=== PATIENT | female | born 1945 | race Caucasian/White ===

== ENCOUNTER 2019-02-11 04:47 | Inpatient (IN) ==
--- NOTE | 2019-01-16 16:31 | PAT Medication Instructions ---
Medication Instructions Date of Service January 16, 2019 Home Medications acetaminophen [Tylenol Arthritis] 1,300 mg PO Q12H PRN aspirin [Aspirin Low Dose] 81 mg PO QPM atenolol 25 mg PO QPM cholecalciferol (vitamin D3) 2,000 unit PO QPM citalopram [Celexa] 10 mg PO QDD diltiazem HCl 240 mg PO QAM ferrous sulfate 325 mg PO QAM metformin 1,000 mg PO BID multivitamin 1 tab PO QPM DO NOT take the morning of surgery ferrous sulfate 325 mg PO QAM metformin 1,000 mg PO BID Take morning of surgery With a small sip of water, OTHERWISE NOTHING TO EAT OR DRINK AFTER MIDNIGHT: acetaminophen [Tylenol Arthritis] 1,300 mg PO Q12H PRN (if needed, may be taken up to four hours before surgery) diltiazem HCl 240 mg PO QAM Take evening before surgery acetaminophen [Tylenol Arthritis] 1,300 mg PO Q12H PRN (if needed) aspirin [Aspirin Low Dose] 81 mg PO QPM atenolol 25 mg PO QPM cholecalciferol (vitamin D3) 2,000 unit PO QPM citalopram [Celexa] 10 mg PO QDD multivitamin 1 tab PO QPM metformin 1,000 mg PO BID Other Notes If you have any questions please call us at [phone] or [phone] or [phone] or [phone]
--- NOTE | 2019-01-17 08:51 | Anesthesiology Consultation ---
Date of Service January 17, 2019 Assessment & Plan (1) Encounter for pre-operative examination: Plan: PCP clearance 02/03/2019: "Labs okay. EKG shows ectopic atrial rhythm which was not present on April 15, 2008 EKG. I would like her to be seen by cardio prior to surgery. We will see how soon we can get her in." Addendum 02/10/19: "Seen by cardio last weekcleared. I believe patient to be an acceptable risk for surgery." Cardiac clearance 02/07/2019: "She has no cardiac symptoms and has reasonable functional status despite her arthritic right knee; she tells me that she goes up and down the 12 steps in her basement several times a day and remains asymptomatic from a cardiac standpoint. We should proceed with her right knee replacement, except in the cardia vascular risk involved and under perioperative beta blockade. An ischemic evaluation is not merited. An EKG from 01/17/2019 reveals an ectopic atrial rhythm; this is not a contraindication to surgery. She will obtain an echocardiogram to rule out significant structural heart disease, which is however unlikely. Her surgery should not be postponed on account of this." Chart Review Chart Review: Acceptable Risk for Surgery and Patient seen in Pre Admission Testing Teaching & Discussion Instructed NPO after midnight before surgery, except medications with 15 cc of water. Medication instructions provided according to the PAT guidelines. History Surgery Operation Date: 02/11/19 07:15 Proposed Procedures p Right Total Knee Arthroplasty - Tanner Burns DO Height/Weight Height: 5 ft 2 in Weight: 53.4 kg Allergies Allergy/AdvReac Type Severity Reaction Status Date / Time niacin Allergy Rash Verified 02/11/19 05:52 lisinopril AdvReac Mild Cough Verified 02/11/19 05:52 morphine AdvReac Unknown N&V Verified 02/11/19 05:52 Medications Home Medications Medication Instructions Recorded Confirmed Last Taken acetaminophen [Tylenol Arthritis 1,300 mg PO Q12H PRN 01/09/19 02/11/19 02/10/19 21:45 Pain] aspirin [Aspirin Low Dose] 81 mg PO QPM 01/09/19 02/11/19 02/08/19 18:00 atenolol 25 mg PO QPM 01/09/19 02/11/19 02/10/19 18:30 cholecalciferol (vitamin D3) 2,000 unit PO QPM 01/09/19 02/11/19 02/10/19 18:30 [Vitamin D3] citalopram [Celexa] 10 mg PO QDD 01/09/19 02/11/19 02/10/19 18:30 diltiazem HCl 240 mg PO QAM 01/09/19 02/11/19 02/11/19 02:30 ferrous sulfate 325 mg PO QAM 01/09/19 02/11/19 02/10/19 10:00 metformin 1,000 mg PO BID 01/09/19 02/11/19 02/10/19 18:00 multivitamin 1 tab PO QPM 01/09/19 02/11/19 02/10/19 18:30 Active Medications Generic Name Dose Route Start Last Admin Trade Name Freq PRN Reason Stop Dose Admin Acetaminophen 1,000 mg 02/11/19 06:00 02/11/19 06:01 Tylenol PO 02/11/19 18:00 1,000 mg PREOP JENNIFER Administration Celecoxib 200 mg 02/11/19 06:00 02/11/19 05:57 Celebrex PO 02/11/19 18:00 200 mg PREOP JENNIFER Administration Dexamethasone 8 mg 02/11/19 06:00 02/11/19 05:58 Decadron PO 02/11/19 18:00 8 mg PREOP JENNIFER Administration Famotidine 20 mg 02/11/19 06:00 02/11/19 06:01 Pepcid PO 02/11/19 18:00 20 mg PREOP JENNIFER Administration Gabapentin 300 mg 02/11/19 06:00 02/11/19 06:00 Neurontin PO 02/11/19 18:00 300 mg PREOP JENNIFER Administration Lactated Ringer's 1,000 mls @ 15 mls/hr 02/11/19 06:00 02/11/19 05:35 Lr IV 02/11/19 18:00 999 mls/hr .Q24H JENNIFER Administration Past Medical History Medical History Anemia Anxiety Diabetes A1C 6.6% Hypertension Osteoarthritis Past Family History Family History Sister Family history of diabetes mellitus Past Surgical History Surgical History History of toe surgery History of total left knee replacement Hx of bilateral cataract extraction Hx of tonsillectomy Hx of total hysterectomy Hx of tubal ligation Past Anesthesia History No Hx of Anesthesia Complications and No Family Hx of Anesthesia Complications History of PONV Yes (related to morphine) Motion Sickness Screening History of Motion Sickness: No Social History Smoking Status: Never smoker Do You Dip or Chew Tobacco: No Hx Alcohol Use: No Hx Substance Use: No substance use type: does not use Exercise / Class Metabolic Activity II 4-5 Yardwork/Stairs/Walk up hill (no CP or SOB with stairs) Review of Systems Pt denies any recent chest pain, shortness of breath, palpitations, cough, fever. +common cold early november Physical Exam Vital Signs Last Vital Signs Temp 36.8 C 02/11/19 06:06 Pulse 56 L 02/11/19 06:06 Resp 20 02/11/19 06:06 BP 144/57 H 02/11/19 06:06 Pulse Ox 97 02/11/19 06:06 BP: 120/69 P: 61 SPO2: 97% RA T: 98.2 F R: 12 ENMT Mouth: + dental restorations (4 crowns on top front teeth); no chipped teeth and no loose teeth Thyromental Distance: > or= 3.5 Finger Breadths (3.5) Mallampati Class: II Neck normal visual inspection; neck extension not limited Respiratory normal respiratory effort Auscultation: lungs clear to auscultation bilaterally Cardiovascular Rate/Rhythm: regular rate and regular rhythm Heart Sounds: no murmur Vessels: no carotid bruit Testing Electrocardiogram Date: 01/17/19 Unusual P axis, possible ectopic atrial rhythm (64bpm). Chest X-Ray Date: 12/27/18 (Chest CT) No evidence of acute pulmonary embolus to the level of the proximal segmental branches of the pulmonary arteries. No suspicious appearing pulmonary nodules. Unremarkable aorta. *this CT was done as f/u for CXR that showed possible nodule. Laboratory Results Blood Type O Positive 01/17/19 09:03 Antibody Screen NEGATIVE 01/17/19 09:03 PT 10.3 Seconds (9.0-12.0) 01/17/19 09:03 INR 1.0 (0.9-1.1) 01/17/19 09:03 APTT 28.3 Seconds (21.0-31.0) 01/17/19 09:03 Urine Color Yellow 01/17/19 09:03 Urine Appearance Clear (Clear) 01/17/19 09:03 Urine pH 5.0 (4.5-7.5) 01/17/19 09:03 Ur Specific Hoffman 1.024 (1.000-1.030) 01/17/19 09:03 Urine Protein Negative (Negative) 01/17/19 09:03 Urine Glucose (UA) Negative (Negative) 01/17/19 09:03 Urine Ketones Negative (Negative) 01/17/19 09:03 Urine Nitrite Negative (Negative) 01/17/19 09:03 Ur Leukocyte Esterase Negative (Negative) 01/17/19 09:03 01/17/19 09:03 Urine Culture - Final Urine,Clean Catch Lactobacillus species 02/11/19 05:16 POC Glucose 109 H 12/25/18 WBC: 9.48 H/H: 13.2/42.1 PLATELETS: 386 SODIUM: 140 POTASSIUM: 3.7 CHLORIDE: 101 CO2: 30.9 BUN: 14.7 CREATININE: 0.61 GLUCOSE: 88 A1C 6.6%
[2019-01-17 09:51] LABS: Partial Thromboplastin Time 28.3 Seconds (21.0-31.0); Prothrombin Time 10.3 Seconds (9.0-12.0)
[2019-01-17 09:52] LABS: Appearance Urine Clear (Clear); Bilirubin Urine Negative (Negative); Blood Urine Negative (Negative); Color Urine Yellow; Glucose Urine UA Negative (Negative); Ketones Urine Negative (Negative); Leukocyte Esterase Urine Negative (Negative); Nitrite Urine Negative (Negative); Protein Urine Negative (Negative); Specific Gravity Urine 1.024 (1.000-1.030); Urobilinogen Urine Negative (Negative)
--- NOTE | 2019-01-17 10:09 | History & Physical Report ---
Date of Service January 17, 2019 Date of Surgery: 02-11-19 Assessment & Plan (1) Tricompartment osteoarthritis of right knee: Risks and benefits of procedure discussed in detail today, patient would like to proceed with a right total knee replacement @ [facility] as scheduled on 02-11-19. will obtain medical clearance prior to surgery as well as obtain PATs at [facility]. Will place on ASA 81mg po bid x 1 month post op, f/u 2 weeks post op for routine post-operative care and xray, sooner if having any problems. will make arrangements for HHPT at the time of discharge. History of Present Illness Chief Complaint: right knee pain Primary Care Provider: Venu Bear Ms Wolfe is a 73 year old female who is here for a follow up of right knee pain, is here today for right TKA for 02/11/[address] Burns at [facility]. She states that the symptoms have been chronic non-traumatic. she admits to pain, decreased range of motion and weakness. Currently the patient states that the symptoms are mild-moderate. The pain is described as aching. The symptoms occur intermittently. She rates her current pain as 3/10. worst pain is 7/10. The symptoms are aggravated by ascending stairs, daily activities, descending stairs, walking and first steps while awake. In addition to right knee pain the patient is also experiencing difficulty bending and pain after activity. Patient has a walker and cane at home. Patient had left TKA done by Dr. Burns 2007. Allergies Allergy/AdvReac Type Severity Reaction Status Date / Time niacin Allergy Rash Verified 01/09/19 10:41 lisinopril AdvReac Mild Cough Verified 01/09/19 10:41 morphine AdvReac Unknown N&V Verified 01/09/19 10:40 Home Medications Home Medications Medication Instructions Recorded Confirmed Type acetaminophen [Tylenol Arthritis 1,300 mg PO Q12H PRN 01/09/19 01/09/19 History Pain] aspirin [Aspirin Low Dose] 81 mg PO QPM 01/09/19 01/09/19 History atenolol 25 mg PO QPM 01/09/19 01/09/19 History cholecalciferol (vitamin D3) 2,000 unit PO QPM 01/09/19 01/09/19 History [Vitamin D3] citalopram [Celexa] 10 mg PO QDD 01/09/19 01/09/19 History diltiazem HCl 240 mg PO QAM 01/09/19 01/09/19 History ferrous sulfate 325 mg PO QAM 01/09/19 01/09/19 History metformin 1,000 mg PO BID 01/09/19 01/09/19 History multivitamin 1 tab PO QPM 01/09/19 01/09/19 History Past Med/Surg History Medical History Anemia Anxiety Diabetes Hypertension Osteoarthritis Surgical History History of toe surgery History of total left knee replacement Hx of bilateral cataract extraction Hx of tonsillectomy Hx of total hysterectomy Hx of tubal ligation Family History Sister Family history of diabetes mellitus Social History Current Living Situation: Spouse Other Information That Helps Us Care for You: No Feels Safe at Home: Yes Safety Concerns: Feels Safe At This Time Smoking Status: Never smoker Do You Dip or Chew Tobacco: No Hx Alcohol Use: No Hx Substance Use: No Beliefs That Will Affect Care: None Preferred Language: Japanese Communication Ability: Effective Review of Systems All systems reviewed & are unremarkable except as noted in HPI & below Constitutional: no fever, no chills and no sweats Respiratory: no cough and no dyspnea Cardiovascular: no chest pain, no dyspnea and no orthopnea Gastrointestinal: no nausea and no vomiting Integumentary: no rash and no lesions Physical Exam Vital Signs (Past 24 Hours): Ht: 5ft 2in Wt: 53.4kg BP: 116/76 Pulse: 62 Resp: 16 Constitutional: WD/WN, vitals as above no acute distress Respiratory: normal respiratory effort, lungs clear to auscultation no respiratory distress, no labored breathing and does not use accessory muscles Cardiovascular: RRR, no murmur, no edema Gastrointestinal (Abdomen): normal bowel sounds, soft, nontender, no hepatosplenomegaly Musculoskeletal: Right Knee Exam she ambulates with a limp and no assistance device, there is no erythema or warmth, no Atrophy or Ecchymosis, mild Effusion, Maximum tenderness Medial joint line, mild Crepitation with motion, Patella position Neutral, Markel's Negative, Rosalia's - lateral positive, Rosalia's - medial positive, Posterior drawer- Negative, Anterior drawer Negative, Valgus stress Negative, Varus stress Negative, no Extensor lag, Pain with Active range of motion, also passive painful ROM, Range of motion 0/3/120. No pain with active/passive ROM of ankle. Lower Extremity Strength normal. Lower Extremity Neuro-vascular is normal Results & Data Diagnostic Findings Right Knee X-ray from 01-06-19 showing tricompartmental DJD, showing joint space narrowing and osteophyte formation. no acute bony pathology, no loose bodies.
[2019-02-11] MEDS ORDERED: TRANEXAMIC ACID 1,000 MG **IV Pre-op IV SCH (06:00)
[2019-02-11] MEDS ORDERED: FAMOTIDINE 20 MG TAB PO SCH (06:00)
[2019-02-11] MEDS ORDERED: ROPIVACAINE 0.5% HCL/PF 150 MG, BUPIVACAINE 0.5% MPF 30 ML, EPINEPHrine 30MG/30ML (OR U... INFIL SCH (06:00)
[2019-02-11] MEDS ORDERED: CEFAZOLIN 1000MG 1,000 MG/7.5 ML SYR IV SCH (06:00)
[2019-02-11] MEDS ORDERED: GABAPENTIN 300 MG PO SCH (06:00)
[2019-02-11] MEDS ORDERED: ACETAMINOPHEN 500 MG TAB PO SCH (06:00)
[2019-02-11] MEDS ORDERED: CeleBREX 200 MG CAP PO SCH (06:00)
[2019-02-11] MEDS ORDERED: LR 500ML BOLUS, THEN 15ML/HR IV SCH (06:00)
[2019-02-11] MEDS ORDERED: dexAMETHasone 4 MG TAB PO SCH (06:00)
[2019-02-11] MEDS ORDERED: ROPIVACAINE 0.5% 5 MG/ML 30 ML VIAL ONE (06:29)
[2019-02-11] MEDS ORDERED: EPINEPHrine INJ 1 MG/ML AMP ONE (06:29)
[2019-02-11] MEDS ORDERED: BUPIVACAINE 0.5 % 5 MG/1 ML PF 10ML VIAL ONE (06:29)
[2019-02-11] MEDS ORDERED: TRANEXAMIC ACID 1,000 MG **IV Intra-op IV SCH (06:30)
[2019-02-11] MEDS ORDERED: PROPOFOL IV EMULSION 10 MG/ML 20 ML VIAL IV ONE (06:40)
[2019-02-11] MEDS ORDERED: MIDAZOLAM HCL 1 MG/ML 2ML VIAL ONE ×2 (06:41→07:49)
[2019-02-11] MEDS ORDERED: fentaNYL citrate 100 MCG/2 ML VIAL ONE (06:41)
[2019-02-11] MEDS ORDERED: ORTHO JOINT ANESTHETIC ONE (06:56)
[2019-02-11] MEDS ORDERED: BACITRACIN INJ 50,000 UNIT VIAL ONE (06:56)
[2019-02-11] MEDS ORDERED: POVIDONE-IODINE OP SOLN 30 ML BTL ONE (06:56)
--- NOTE | 2019-02-11 07:12 | History & Physical Bridge Note ---
Date of Service February 11, 2019 History & Physical Bridge Note I have examined the patient, reviewed the History & Physical and in the interval since the performance of the History & Physical I have noted the following changes of clinical significance: no changes noted
[2019-02-11] MEDS ORDERED: ATROPINE SULFATE 0.1 MG/ML 10ML SYR IV PRN (07:22)
[2019-02-11] MEDS ORDERED: fentaNYL citrate 100 MCG/2 ML VIAL IV PRN (07:22)
[2019-02-11] MEDS ORDERED: HYDROmorphone INJ 1 MG/ML SYRINGE IV PRN (07:22)
[2019-02-11] MEDS ORDERED: ePHEDrine sulfate 50 MG/ML AMP IV PRN (07:22)
[2019-02-11] MEDS ORDERED: ONDANSETRON INJ 2 MG/ML 2 ML VIAL IV PRN ×2 (07:22→09:14)
--- NOTE | 2019-02-11 08:18 | Operative Report ---
Post Operative Report Pre & Post Diagnosis Operation Date: 02/11/19 07:15 Pre-Op Diagnosis: right knee osteoarthritis Post-Op Diagnosis: right knee osteoarthritis Procedure Operation Date: 02/11/19 07:15 Actual Procedures p Right Total Knee Arthroplasty(Right) total knee arthroplasty utilizing journey 2 patient matched total knee arthroplasty size 3 femur 3 tibia 10 polyethylene 29 oval patella- Tanner Burns DO Surgeon Tanner Burns DO Time Stamp Assembler Blayne WHEATLEY Estimated Blood Loss 5 Findings Consistent with Post-Op Diagnosis Patient presents with severe end-stage tricompartmental degenerative joint disease varus alignment [id number] changes intraoperative subchondral cystic changes marginal osteophytes moderate to large effusion with eburnated bone on bone changes Specimens Bone and cartilage Drains Medium bore Hemovac Complications none Disposition Accompanied Patient To Recovery: No Disposition: Recovery Room Indications Patient presents for right total knee arthroplasty after failed attempts at conservative management and physical therapy anti-inflammatories relative rest activity modification corticosteroid injection Visco supplementation the above intraoperative findings were noted at the time of surgery. Description of Procedure After proper prepping and draping of the Right lower extremity anterior midline incision was made over the region of the extensor extensor mechanism after meticulous hemostasis was obtained and maintained in subcutaneous tissues a medial parapatellar incision was made The patella was subluxed lateralward the medial lateral gutter were cleaned from any hypertrophic synovitis and scar tissue of the distal femoral block was placed and the distal femoral osteotomy cut was made subsequently the chamfers anterior and posterior osteotomy cuts were made utilizing the 4-in-1 block the tibia was subsequently subluxed anteriorward medial and ateral meniscal remnants were excised in their entirety remnants of the anterior and posterior cruciate ligaments were excised in their entirety excellent exposure of the proximal tibia was obtained the tibial osteotomy guide was placed on the proximal tibial osteotomy cut was made once again the knee was irrigated with copious amounts of sterile saline solution the patella was subsequently everted lateralward thickened scar tissue around the patella was removed the patella was subsequently cut utilizing a freehand technique and was drilled prepared for final preparation and placement of patella socially flexion-extension gaps were checked and the equal and symmetric trials were placed to the appropriate femoral and tibial trials with poly-spacer being placed for equal flexion and extension gaps and full range of motion including extension to 0 and flexion to 140 the trial components after having been taken to recovery range of motion was subsequently removed meticulous hemostasis was obtained and maintained subsequently a knee block injection of joint cocktail including ropivacaine 0.5% 150 mg. Bupivacaine 0.5% epinephrine 1-200,030 mL's toradol 30 mg dexamethasone 4 mg ketamine 10 mg clonidine 100 micrograms normal saline solution 30 mg was infiltrated into the soft tissues of the posterior knee medial lateral gutters and periosteal synovium special attention was paid to protect neurovascular structures at all times subsequently trial components having been removed the knee was irrigated with sterile saline solution. debris was removed the proximal tibia was subsequently prepared and was made ready for the placement of the tibial component tibial component was also cemented and tamped into position the femoral component was subsequently placed and cemented in the position the patellar component was subsequently cemented in position because hemostasis once again obtained and maintained wound having been thoroughly irrigated with debridement and debridement lavage was performed as well as a medial parapatellar incision closed with #1 Vicryl in interrupted fashion subcutaneous was closed with #2 Vicryl skin was closed with skin clips. PA-C was necessary for prepping and drapping as well as wound closure of deep fascia Sub cutaneous tissue and skin and was necessary for the case. A sterile compressive dressing was placed patient was taken to recovery in stable condition of report dictated by Grant I attest to the content of the Intraoperative Record and any orders documented therein. Any exceptions are noted below. I attest to the content of the Intraoperative Record and any orders documented therein. Any exceptions are noted below.
[2019-02-11] MEDS ORDERED: NALOXONE HCL 0.4 MG/1 ML VIAL/CARP IV PRN (09:14)
[2019-02-11] MEDS ORDERED: HYDROmorphone INJ 0.5 MG/0.5 ML SYR IV PRN (09:14)
[2019-02-11] MEDS ORDERED: BISACODYL 10 MG SUPP PR PRN (09:14)
[2019-02-11] MEDS ORDERED: METOCLOPRAMIDE HCL INJ 5 MG/ML 2 ML VIAL IV PRN (09:14)
[2019-02-11] MEDS ORDERED: MAGNESIUM HYDROXIDE SUSP 30 ML UDC PO PRN (09:14)
[2019-02-11] MEDS ORDERED: ALUMINUM/MAGNESIUM SUSP 30 ML UDC PO PRN (09:14)
[2019-02-11] MEDS ORDERED: SODIUM CHLORIDE 0.9% 1000ML 1,000 ML IV SCH (09:14)
--- NOTE | 2019-02-11 09:32 | XRay Report ---
XR knee RT 2V routine CLINICAL HISTORY: Surgical Post Op postoperative COMPARISON: None. DISCUSSION: Anatomic alignment post total right knee arthroplasty. Good contact between prosthetic an d underlying bone. Surgical drains are in position. IMPRESSION: Anatomic alignment post total right knee arthroplasty. The above report was generated using voice recognition software. It may contain grammatical, syntax or spelling errors. Electronically signed by: Blayne Escamilla M.D. 02/11/2019 9:30 AM
--- NOTE | 2019-02-11 10:19 | Anesthesiology Progress Note ---
Date of Service February 11, 2019 Anesthesia Post Procedure Vital Signs Vital Signs: Temp Pulse Pulse Resp BP Pulse Ox 02/11/19 10:05 71 21 118/53 L 96 02/11/19 09:55 72 16 113/56 L 95 02/11/19 09:45 76 16 119/52 L 98 02/11/19 09:35 37.0 C 70 16 119/51 L 99 02/11/19 09:25 77 16 114/62 99 02/11/19 09:15 72 16 116/59 L 99 02/11/19 09:05 71 16 114/50 L 100 02/11/19 08:57 36.2 C L 77 16 120/46 L 100 02/11/19 06:06 36.8 C 56 L 20 144/57 H 97 Notes Mental Status: alert / awake / arousable and participated in evaluation Nausea / Vomiting: adequately controlled Pain: adequately controlled Airway Patency, RR, SpO2: stable & adequate BP & HR: stable & adequate Hydration State: stable & adequate Neuraxial Anesthesia: was administered and sensory block is resolving Anesthetic Complications: no major complications apparent and Pt Satisfied with anesthetic care
[2019-02-11] MEDS: DOCUSATE SODIUM 100 MG CAP PO SCH ×2 (11:17→21:28)
[2019-02-11] MEDS: MULTIVITAMIN TAB PO SCH (11:17)
[2019-02-11] MEDS ORDERED: DEXTROSE 50% 50 ML SYRINGE IV PRN (13:03)
[2019-02-11] MEDS ORDERED: GLUCOSE 40% GEL 15 GM TUBE PO PRN (13:03)
[2019-02-11] MEDS ORDERED: GLUCAGON FOR INJ 1 MG VIAL SQ PRN (13:03)
[2019-02-11] MEDS ORDERED: GLUCOSE 10 TABS/TUBE PO PRN (13:03)
[2019-02-11] MEDS ORDERED: CARBOHYDRATES FOR HYPOGLYCEMIA PO PRN (13:03)
[2019-02-11] MEDS ORDERED: PNEUMOCOCCAL POLYSACCHARIDES 25 MCG/0.5 ML VIAL/SYR IM ONE (13:45)
[2019-02-11] MEDS ORDERED: PNEUMOCOCCAL ADMINISTRATION CHARGE ONE (13:45)
[2019-02-11] MEDS: ACETAMINOPHEN 500 MG TAB PO SCH ×2 (14:07→21:37)
[2019-02-11] MEDS: ASPIRIN 81 MG ECTAB PO SCH ×2 (14:22→21:28)
--- NOTE | 2019-02-11 14:54 | Consultation ---
Date of Consultation February 11, 2019 Assessment & Plan (1) Tricompartment osteoarthritis of right knee: - S/P R TKA on 02/11 - DVT Prophylaxis - ASA 81 mg BID - Surgical management per primary team Present on Admission?: Yes (2) Ectopic atrial beats: - Found incidentally on pre-operative EKG - was recently established with cardiology and awaiting an echocardiogram as outpatient - no current intervention - Is currently on BB and CBB therapy which would control this - No CP or SOB or irregularity on assessment - can F/U with cardiology for further assessment and intervention Present on Admission?: Yes (3) Anemia: - No labs in system - will F/U with AM labs - Chronically on iron supplementation (4) Type 2 diabetes mellitus: - With good control - Hold Metformin and cover with SSI - did have pre-operative steroids which could affect some BSG readings Present on Admission?: Yes (5) Essential hypertension: - Diltiazem 240 mg AM and Atenolol 25 mg PM Present on Admission?: Yes (6) Anxiety: - Celexa 10 mg daily Present on Admission?: Yes Supervising Physician Co-Signing Physician Notes Pt seen and examined by me. Denies chest pain or SOB. States she has no pain in her R knee. Tolerating PO without issue. Agree with HPI/ROS as noted by PA See above for my exam in PE section Agree with plan as outlined above doing well post-op Monitor DM, HTN History of Present Illness Reason for Consultation: Post-Operative Management Attending Physician: Tanner Burns, DO History of Present Illness Ms. Wolfe is a 73 y/o female with PMHx of Chronic Anemia, T2DM, HTN, and Ectopic Atrial Beats who is S/P R TKA on 02/11. She is doing well post- operatively with no pain currently. She is tolerating a diet without difficulty. She reports seeing tray delivery aide prior to her surgical procedure. She is scheduled for an echocardiogram in the coming weeks give the ectopic atrial beats however no current intervention is necessary. She currently is on CBB and BB therapy which would control this. She denies other cardiac issues or H/O RI/CHF. No history of DVT/PE. Allergies Allergy/AdvReac Type Severity Reaction Status Date / Time niacin Allergy Rash Verified 02/11/19 05:52 lisinopril AdvReac Mild Cough Verified 02/11/19 05:52 morphine AdvReac Unknown N&V Verified 02/11/19 05:52 Home Medications Home Medications Medication Instructions Recorded Confirmed Type acetaminophen [Tylenol Arthritis 1,300 mg PO Q12H PRN 01/09/19 02/11/19 History Pain] aspirin [Aspirin Low Dose] 81 mg PO QPM 01/09/19 02/11/19 History atenolol 25 mg PO QPM 01/09/19 02/11/19 History cholecalciferol (vitamin D3) 2,000 unit PO QPM 01/09/19 02/11/19 History [Vitamin D3] citalopram [Celexa] 10 mg PO QDD 01/09/19 02/11/19 History diltiazem HCl 240 mg PO QAM 01/09/19 02/11/19 History ferrous sulfate 325 mg PO QAM 01/09/19 02/11/19 History metformin 1,000 mg PO BID 01/09/19 02/11/19 History multivitamin 1 tab PO QPM 01/09/19 02/11/19 History Patient History Medical History Anemia Anxiety Diabetes A1C 6.6% Hypertension Osteoarthritis Surgical History History of toe surgery History of total left knee replacement Hx of bilateral cataract extraction Hx of tonsillectomy Hx of total hysterectomy Hx of tubal ligation Family History Sister Family history of diabetes mellitus Other Breast cancer COPD (chronic obstructive pulmonary disease) Coronary heart disease Heart disease Hypertension Kidney disease Stroke Social History Preferred Language: Tristanian Communication Ability: Effective Beliefs That Will Affect Care: None Current Living Situation: Spouse Other Information That Helps Us Care for You: No Feels Safe at Home: Yes Safety Concerns: Feels Safe At This Time Smoking Status: Never smoker Hx Alcohol Use: No Hx Substance Use: No Review of Systems Constitutional: no fever, no chills, no fatigue and no anorexia Eyes: no worsening vision Ear, Nose, Mouth, Throat: no sore throat and no dysphagia Respiratory: no cough and no dyspnea Cardiovascular: no chest pain, no lightheadedness and no edema Gastrointestinal: no abdominal pain, no nausea, no vomiting, no constipation and no diarrhea/loose stools Genitourinary (Female): no dysuria Musculoskeletal: no joint pain Integumentary: no rash Neurologic: no tingling and no numbness Physical Exam Vital Signs (Past 24 Hours): Last Vital Signs Temp 36.6 C 02/11/19 11:37 Pulse 102 H 02/11/19 13:44 Resp 18 02/11/19 13:44 BP 135/67 02/11/19 13:44 Pulse Ox 97 02/11/19 13:44 Physical Exam: Exam as done by Cassandra Parikh DO: Constitutional: WD/WN, vitals as above Eyes: + anicteric sclerae ENMT: Ears: no hearing impairment Neck: trachea midline Respiratory: normal respiratory effort, lungs clear to auscultation Cardiovascular: RRR, no murmur, no edema Rate/Rhythm: regular rate and regular rhythm Gastrointestinal (Abdomen): Inspection/Auscultation: normal bowel sounds Percussion/Palpation: abdomen soft; abdomen nontender Musculoskeletal: Head/Neck/Chest: normocephalic and head atraumatic Neg for peripheral LE edema, + pedal pulses Skin: no rashes, warm and dry Neurologic: moves all extremities Speech / Cognition: normal speech Psychiatric: A+Ox3, euthymic affect Lymphatic: Exam as done by Cassandra Parikh DO
[2019-02-11] MEDS: CEFAZOLIN 1000MG 1,000 MG/7.5 ML SYR IV SCH ×2 (17:33→23:46)
[2019-02-11] MEDS: CITALOPRAM 20 MG TAB PO SCH (17:33)
[2019-02-11] MEDS: INSULIN ASPART 100 UNITS/ML 3 ML PEN SC SCH ×2 (18:51→21:33)
[2019-02-11] MEDS: SENNA 8.6 MG TAB PO SCH (21:27)
[2019-02-11] MEDS: ATENOLOL 25 MG TABLET PO SCH (21:29)
[2019-02-11] MEDS: CHOLECALCIFEROL 1,000 UNITS TAB PO SCH (21:29)
[2019-02-12] MEDS: ACETAMINOPHEN 500 MG TAB PO SCH ×3 (05:35→22:12)
[2019-02-12 06:07] LABS: Hematocrit (blood only) 27.8 % (37-47); Mean Corpuscular Hgb Conc 32.4 g/dL (32-36); Mean Corpuscular Volume 83.5 fL (80-100); Mean Platelet Volume 9.3 fL (7.4-10.4); Platelet Count 326 K/uL (130-400); RDW Coefficient of Variation 14.3 % (11.5-14.5); RDW Standard Deviation 43.6 fL (36.4-46.3); Red Blood Count 3.33 M/uL (4.2-5.4); White Blood Count 14.36 K/uL (4.8-10.8)
[2019-02-12 06:43] LABS: BUN Creatinine Ratio 22.4 (10-20); Calcium 8.7 mg/dl (8.5-10.1); Creatinine Clr Calc Pharmacy 53.3 ml/min; Est GFR (Non-African American) 82.9; Potassium 4.3 mmol/L (3.5-5.1)
--- NOTE | 2019-02-12 08:27 | Anesthesiology Progress Note ---
Date of Service February 12, 2019 Anesthesia Post Procedure Vital Signs Vital Signs: Temp Pulse Pulse Resp BP Pulse Ox 02/12/19 07:12 36.7 C 88 18 133/72 98 02/12/19 03:20 36.6 C 102 H 16 106/59 L 100 02/11/19 23:30 37.2 C 100 H 16 120/65 99 02/11/19 19:58 36.3 C L 84 16 144/74 H 98 02/11/19 15:15 35.9 C L 89 16 143/69 H 97 02/11/19 13:44 102 H 18 135/67 97 02/11/19 12:48 84 18 121/65 95 02/11/19 11:37 36.6 C 78 18 121/67 94 02/11/19 11:14 36.5 C 73 18 123/56 L 93 02/11/19 10:40 37.3 C 81 18 120/62 99 02/11/19 10:15 36.9 C 75 18 118/52 L 96 02/11/19 10:05 71 21 118/53 L 96 02/11/19 09:55 72 16 113/56 L 95 02/11/19 09:45 76 16 119/52 L 98 02/11/19 09:35 37.0 C 70 16 119/51 L 99 02/11/19 09:25 77 16 114/62 99 02/11/19 09:15 72 16 116/59 L 99 02/11/19 09:05 71 16 114/50 L 100 02/11/19 08:57 36.2 C L 77 16 120/46 L 100 Pain Intensity Right Knee: Pain Intensity: 1 Notes Mental Status: alert / awake / arousable Patient Amnestic to Procedure: No (vague recall; no anxiety; ) Nausea / Vomiting: adequately controlled Pain: adequately controlled Airway Patency, RR, SpO2: stable & adequate BP & HR: stable & adequate Hydration State: stable & adequate Neuraxial Anesthesia: was administered and sensory block resolved Anesthetic Complications: no major complications apparent
[2019-02-12] MEDS: ASPIRIN 81 MG ECTAB PO SCH ×2 (08:44→21:14)
[2019-02-12] MEDS: dilTIAZem HCL 120 MG CAPCR PO SCH (08:44)
[2019-02-12] MEDS: MULTIVITAMIN TAB PO SCH (08:45)
[2019-02-12] MEDS: DOCUSATE SODIUM 100 MG CAP PO SCH ×2 (08:47→21:16)
--- NOTE | 2019-02-12 08:49 | Hospitalist Progress Note ---
Date of Service February 12, 2019 Assessment & Plan (1) Tricompartment osteoarthritis of right knee: - S/P R TKA on 02/11 - DVT Prophylaxis - ASA 81 mg BID - Surgical management per primary team (2) Ectopic atrial beats: - Found incidentally on pre-operative EKG - was recently established with cardiology and awaiting echocardiogram as outpatient - no current intervention - Is currently on BB and CBB therapy which would control this; heart rate is sta ble - F/U with cardiology for further assessment and intervention (3) Anemia: - No labs in system - Hgb at 9 this AM which Hgb in outpatient documents suggest last Hgb was 12.6 - recommend recheck tomorrow - Chronically on iron supplementation and will continue (4) Type 2 diabetes mellitus: - With good control - Hold Metformin and cover with SSI - can resume Metformin on D/C (5) Essential hypertension: - Diltiazem 240 mg AM and Atenolol 25 mg PM (6) Anxiety: - Celexa 10 mg daily (7) DVT prophylaxis: - ASA 81 mg BID Disposition: Patient is stable in regards to her chronic medical conditions. Will recheck her CBC in AM to further assess Hgb. Do not suspect transfusion support will be needed. Hospitalist service will monitor peripherally. May resume all home medications as previously prescribed on D/C. If there are any questions or a change in medical condition, please do not hesitate to contact the hospitalist team. Subjective Reports feeling well. Pain very well controlled and ambulating well. Tolerating diet without issue. Denies CP/SOB. Hgb did drop from baseline however asymptomatic. Recheck scheduled for tomorrow Constitutional: no fever and no chills Eyes: no worsening vision Ear, Nose, Mouth, Throat: no sore throat and no dysphagia Respiratory: no cough and no dyspnea Cardiovascular: no chest pain and no palpitations Gastrointestinal: no abdominal pain, no nausea, no vomiting, no constipation and no diarrhea/loose stools Genitourinary (Female): no dysuria Musculoskeletal: + joint pain (R knee - stable and controlled with medications) Integumentary: no rash Neurologic: no tingling and no numbness Physical Exam Vital Signs (Past 24 Hours): Last Vital Signs Temp 36.7 C 02/12/19 07:12 Pulse 88 02/12/19 07:12 Resp 18 02/12/19 07:12 BP 133/72 02/12/19 07:12 Pulse Ox 98 02/12/19 07:12 Constitutional: WD/WN, vitals as above Eyes: + anicteric sclerae ENMT: Ears: no hearing impairment Neck: trachea midline Respiratory: normal respiratory effort, lungs clear to auscultation Cardiovascular: RRR, no murmur, no edema Gastrointestinal (Abdomen): Inspection/Auscultation: normal bowel sounds Percussion/Palpation: abdomen soft; abdomen nontender Musculoskeletal: Head/Neck/Chest: normocephalic and head atraumatic R knee with dressing C/D/I with drain present; some bending ability of the knee with full ROM of the ankle/toes Skin: no rashes, warm and dry Neurologic: moves all extremities Psychiatric: A+Ox3, euthymic affect
[2019-02-12] MEDS: INSULIN ASPART 100 UNITS/ML 3 ML PEN SC SCH ×4 (09:49→21:16)
--- NOTE | 2019-02-12 10:20 | Orthopedic Progress Note ---
Date of Service February 12, 2019 Assessment & Plan (1) Degenerative joint disease of right knee: POD 1 s/p Right TKA PT/OT DVT Prophylaxis with ASA,SCD's,NIEVES's Pain managment as written Subjective POD 1 s/p Right TKA Pt ambulating in room this AM. Having some pain in the knee but tolerating well. Has not done PT yet. Denies SOB,CP,LH. Having some leg cramps in her leg which she states is normal for her. Physical Exam Vital Signs (Past 24 Hours): Last Vital Signs Temp 36.7 C 02/12/19 07:12 Pulse 88 02/12/19 07:12 Resp 18 02/12/19 07:12 BP 133/72 02/12/19 07:12 Pulse Ox 98 02/12/19 07:12 Physical Exam: Dressings C/D/I. Calves soft, NT. NV intact. Toes mobile. HV 75ml latest shift. Results & Data Laboratory Results 02/12/19 02/12/19 02/12/19 Range/Units 08:03 05:48 05:48 WBC 14.36 H (4.8-10.8) K/uL RBC 3.33 L (4.2-5.4) M/uL Hgb 9.0 L (12.0-16.0) g/dL Hct 27.8 L (37-47) % MCV 83.5 (80-100) fL MCH 27.0 (25-34) pg MCHC 32.4 (32-36) g/dL RDW Std Deviation 43.6 (36.4-46.3) fL RDW Coeff of Elena 14.3 (11.5-14.5) % Plt Count 326 (130-400) K/uL MPV 9.3 (7.4-10.4) fL Sodium 138 (136-145) mmol/L Potassium 4.3 (3.5-5.1) mmol/L Chloride 105 (98-107) mmol/L Carbon Dioxide 27 (21-32) mmol/L Anion Gap 6.0 (3-11) BUN 16 (7-18) mg/dl Creatinine 0.73 (0.6-1.2) mg/dl Est Cr Clr Drug Dosing 53.3 ml/min Est GFR ( Amer) 96.0 Est GFR (Non-Af Amer) 82.9 BUN/Creatinine Ratio 22.4 H (10-20) Glucose 167 H (70-99) mg/dl POC Glucose 162 H (70-99) Calcium 8.7 (8.5-10.1) mg/dl 02/11/19 02/11/19 02/11/19 Range/Units 20:37 17:03 12:16 WBC (4.8-10.8) K/uL RBC (4.2-5.4) M/uL Hgb (12.0-16.0) g/dL Hct (37-47) % MCV (80-100) fL MCH (25-34) pg MCHC (32-36) g/dL RDW Std Deviation (36.4-46.3) fL RDW Coeff of Elena (11.5-14.5) % Plt Count (130-400) K/uL MPV (7.4-10.4) fL Sodium (136-145) mmol/L Potassium (3.5-5.1) mmol/L Chloride (98-107) mmol/L Carbon Dioxide (21-32) mmol/L Anion Gap (3-11) BUN (7-18) mg/dl Creatinine (0.6-1.2) mg/dl Est Cr Clr Drug Dosing ml/min Est GFR ( Amer) Est GFR (Non-Af Amer) BUN/Creatinine Ratio (10-20) Glucose (70-99) mg/dl POC Glucose 232 H 180 H 182 H (70-99) Calcium (8.5-10.1) mg/dl
[2019-02-12] MEDS: FERROUS SULFATE 325 MG TAB PO SCH (10:39)
[2019-02-12] MEDS: OXYCODONE HCL IR 5 MG TAB (IMMEDIATE RELEASE) PO PRN ×3 (10:43→21:11)
[2019-02-12] MEDS: CITALOPRAM 20 MG TAB PO SCH (15:43)
[2019-02-12] MEDS: SENNA 8.6 MG TAB PO SCH (21:14)
[2019-02-12] MEDS: CHOLECALCIFEROL 1,000 UNITS TAB PO SCH (21:14)
[2019-02-12] MEDS: ATENOLOL 25 MG TABLET PO SCH (21:14)
[2019-02-13] MEDS: OXYCODONE HCL IR 5 MG TAB (IMMEDIATE RELEASE) PO PRN ×3 (02:07→13:53)
[2019-02-13] MEDS: ACETAMINOPHEN 500 MG TAB PO SCH ×2 (05:24→13:52)
[2019-02-13 06:10] LABS: Basophils # (auto) 0.01 K/uL (0-0.2); Basophils % (auto) 0.1 %; Eosinophils # (auto) 0.02 K/uL (0-0.5); Eosinophils % (auto) 0.2 %; Hematocrit (blood only) 25.4 % (37-47); Hemoglobin 8.2 g/dL (12.0-16.0); Immature Granulocytes # (auto) 0.02 K/uL (0.00-0.02); Immature Granulocytes % (auto) 0.2 %; Lymphocytes # (auto) 3.38 K/uL (1.2-3.4); Lymphocytes % (auto) 32.4 %; Mean Corpuscular Hgb Conc 32.3 g/dL (32-36); Mean Corpuscular Volume 84.1 fL (80-100); Mean Platelet Volume 9.5 fL (7.4-10.4); Monocytes # (auto) 1.21 K/uL (0.11-0.59); Monocytes % (auto) 11.6 %; Neutrophils # (auto) 5.78 K/uL (1.4-6.5); Neutrophils % (auto) 55.5 %; Platelet Count 317 K/uL (130-400); RDW Coefficient of Variation 14.8 % (11.5-14.5); RDW Standard Deviation 45.8 fL (36.4-46.3); Red Blood Count 3.02 M/uL (4.2-5.4); White Blood Count 10.42 K/uL (4.8-10.8)
[2019-02-13 06:32] LABS: RBC Morphology Unremarkable
--- NOTE | 2019-02-13 08:21 | Orthopedic Progress Note ---
Date of Service February 13, 2019 Assessment & Plan (1) Degenerative joint disease of right knee: POD 2 s/p Right TKA PT/OT DVT Prophylaxis with ASA,SCD's,NIEVES's will order US to r/o DVT to make sure isn't more than her normal cramps, if normal will plan for d/c home later today with OPPT Subjective POD 2 s/p Right TKA denies CP/SOB denies Fever/chills c/o leg cramps posterior knee and thigh, does have these at home from time to time Physical Exam Vital Signs (Past 24 Hours): Last Vital Signs Temp 37.3 C 02/13/19 07:24 Pulse 70 02/13/19 07:24 Resp 16 02/13/19 07:24 BP 116/56 L 02/13/19 07:24 Pulse Ox 97 02/13/19 07:24 Constitutional: WD/WN, vitals as above no acute distress Musculoskeletal: TAMRA dressing distal aspect saturated with blood, this was c hanged this am by myself and no active bleeding. otherwise incision Clean and dry, able to wiggle toes/ankle motion no discomfort. some tenderness posterior calf
[2019-02-13] MEDS: ASPIRIN 81 MG ECTAB PO SCH (08:35)
[2019-02-13] MEDS: MULTIVITAMIN TAB PO SCH (08:35)
[2019-02-13] MEDS: FERROUS SULFATE 325 MG TAB PO SCH (08:35)
[2019-02-13] MEDS: dilTIAZem HCL 120 MG CAPCR PO SCH (08:36)
[2019-02-13] MEDS: DOCUSATE SODIUM 100 MG CAP PO SCH (08:38)
[2019-02-13] MEDS: INSULIN ASPART 100 UNITS/ML 3 ML PEN SC SCH ×2 (09:05→13:07)
--- NOTE | 2019-02-13 10:31 | Ultrasound Report ---
US venous doppler LE RT HISTORY: 73 years-old Female r/o DVT right lower extremity acute pain and swelling of the right lowe r extremity COMPARISON: Right knee radiographs 02/11/2019 TECHNIQUE: Multiple real-time sonographic images of the right lower extremity deep venous structures were obtained assessing grayscale appearance, color and spectral flow FINDINGS: Normal flow, compressibility, phasicity and augmentation of the right lower extremity deep venous str uctures. Complex hypoechoic collection about the popliteal fossa measures 6.8 x 1.5 x 2.5 cm suggesti ve of a Mckenzie's cyst. IMPRESSION: No sonographic evidence of deep venous thrombosis. The above report was generated using voice recognition software. It may contain grammatical, syntax o r spelling errors. Electronically signed by: Munir Santiago M.D. 02/13/2019 10:30 AM
--- NOTE | 2019-02-13 18:45 | Discharge Summary ---
Date of Service Date of Discharge: February 13, 2019 Date of Admission: 02/11/19 Admission HPI Per Admitting Provider Ms Wolfe is a 73 year old female who is here for a follow up of right knee pain, is here today for right TKA for 02/11/[address] Burns at [facility]. She states that the symptoms have been chronic non-traumatic. she admits to pain, decreased range of motion and weakness. Currently the patient states that the symptoms are mild-moderate. The pain is described as aching. The symptoms occur intermittently. She rates her current pain as 3/10. worst pain is 7/10. The symptoms are aggravated by ascending stairs, daily activities, descending stairs, walking and first steps while awake. In addition to right knee pain the patient is also experiencing difficulty bending and pain after activity. Patient has a walker and cane at home. Patient had left TKA done by Dr. Burns 2007. Principal Diagnosis right knee osteoarthritis Discharge Exam Constitutional WD/WN, vitals as above no acute distress Musculoskeletal NVDI, calf SNT, negative angle sign. DP palpable, able to wiggle toes/ankle movement without difficulty. TAMRA dressing clean dry and intact. expected post- operative bruising noted. Discharge Data Allergies Allergy/AdvReac Type Severity Reaction Status Date / Time niacin Allergy Rash Verified 02/11/19 05:52 lisinopril AdvReac Mild Cough Verified 02/11/19 05:52 morphine AdvReac Unknown N&V Verified 02/11/19 05:52 Consultations 02/11/19 09:14 Consult Case Management - Discharge Planning Routine Consult Hospitalist Routine Procedures Performed Operation Date: 02/11/19 07:15 Actual Procedures p Right Total Knee Arthroplasty(Right) - Tanner Burns DO Ordered Studies 02/11/19 05:00 US - OR guided needle placemen Routine 02/11/19 06:46 US - OR guided needle placemen Routine 02/13/19 08:25 US venous doppler LE RT Stat Hospital Course (1) Degenerative joint disease of right knee: POD 2 s/p Right TKA PT/OT DVT Prophylaxis with ASA,SCD's,NIEVES's will order US to r/o DVT to make sure isn't more than her normal cramps, if normal will plan for d/c home later today with OPPT Total Time Total Time Spent Total Time Spent (In Minutes): 20 Total Time Includes: Examination of the Patient, Discharge Planning and Medication Reconciliation Discharge Plan Discharge Items Patient Disposition: Home - Self-Care Reason For Visit: RIGHT KNEE OSTEOARTHRITIS Discharge Diagnosis: right total knee replacement Condition: Good Discharge Goals: Decrease discomfort, Improve function and Increase independence Activity: Per 'Additional Instructions' section Lifting: Wait until after follow-up appointment Driving/Machine Use Comment: no driving until cleared by your physician Weightbearing: Right weightbearing Weightbearing Comment: WBAT with walker Non-emergency contact: Primary Care Provider and Surgeon Call non-emergency contact if: you have any medication questions, your te mperature is above 101 and your wound pain has increased Follow-up/Referrals: Venu Bear D.O. [Primary Care Provider] - Diet: Regular and Carb Consistent or DM2 Addtl Provider Instructions: ACTIVITY RECOMMENDATIONS: SELF CARE INSTRUCTIONS AFTER TOTAL KNEE REPLACEMENT A. You may need to continue a physical therapy program after discharge from the hospital. There are several options available to you. Your doctor will assist you in selecting the best one for you. 1. An out-patient facility 2 to 3 times a week for therapy or home therapy. 2. Continue working on all exercises taught to you in the hospital. Your goals should be to increase bending of your knee to 90 degrees and beyond and to fully straighten your knee. B. You may progress at your own pace from walking with a walker or crutches to a cane; then to no assistive devices. C. Make walking a part of your daily routine. Be up as much as comfortable with rest periods throughout the day. Rest with leg elevation is very important. Use the ice wrap frequently for the first 3-4 weeks. D. There are no restrictions on activities. You may ride in a car, shop, participate in ocean fishing guide and all social activities. E. Wear the long elastic stockings (NIEVES hose) 20 hours a day for 2 weeks after surgery. They can be removed several times a day for laundering and for a bath. F. You may shower, no tub baths until cleared by your doctor. SPECIAL CARE INSTRUCTIONS: VERY IMPORTANT TO READ AND REVIEW A. There are a few signs you need to watch for after you are home. Call [facility] if you notice any of the followin. Increased severe knee pain. Some pain is expected especially when you e xercise. 2. Increased swelling in your leg or knee; pain or swelling of the calf muscle in either lower leg. 3. Any fluid drainage from the incision. 4. Shortness of breath or chest pain. B. Please call [facility] at if you have any concerns or questions about your operation or recovery. The doctor or his nurse will return your call promptly. C. You must take antibiotics before dental work, bladder, bowel or other surgery. Your doctor will provide you with a permanent care to carry describing this precaution. IMPORTANT: * REMEMBER TO TAKE ASPIRIN, 81 MG, TWICE DAILY FOR 4 WEEKS UNLESS OTHERWISE DIRECTED. THIS IS YOUR BLOOD THINNER. * HIGH RISK PATIENTS MAY BE PRESCRIBED A STRONGER BLOOD THINNER. THIS WILL BE PROVIDED AT DISCHARGE. * CALL IF INCREASED PAIN, REDNESS, DRAINAGE OR FEVER GREATER THAT 101. * WEAR NIEVES HOSE 20 HOURS PER DAY FOR 2 WEEKS. * TAMRA Dressing- This is a large suction dressing covering your incision. This will help pull any excess drainage from the wound and allow your incision to heal properly. You may shower with this if you can keep the unit outside of the shower. If any bleeding or leakage is noted please call your doctor's office. This will remain on your incision for 7 days and then should be removed. This can be done yourself or by the home nursing staff if applicable. The entire unit is disposable once removed. Once removed, keep incision clean and dry. If redness or drainage is noted, please call your surgeon. DERMABOND Prineo- This is a mesh tape dressing that is covered with glue. It should remain in place until the incision is properly healed, usually 10-14 days. This dressing is designed to naturally slough off. You may trim the excess mesh tape as it peels off. Incision may be briefly wet in a shower. Dry immediately by blotting with a clean, dry towel. Do not bath or swim until instructed by your doctor. Do not scratch, rub, or pick at the dressing. Do not apply any topical ointments or lotions until dressing is completely removed and/or instructed by your doctor. There may be a small piece of suture material at one end of your incision. Do not pull or trim this. If it is bothersome or catching on clothing, you may cover it with a band-aid. FOLLOW UP VISIT: If appointment is not already scheduled: Please call [facility] to make a follow-up appointment for 2 weeks after your surgery at . Prescriptions: New aspirin [Ecotrin Low Strength] 81 mg Tablet,Delayed Release (Dr/Ec) 81 mg PO BID 30 Days Qty: 60 RF: 0 docusate sodium 100 mg Capsule 100 mg PO BID 10 Days Qty: 20 RF: 0 cefadroxil 500 mg capsule 500 mg PO BID 10 Days Qty: 20 RF: 0 hydrocodone-acetaminophen [[place]] 5-325 mg tablet 1 - 2 tab PO Q6H PRN (Reason: pain) Qty: 30 RF: 0 Continued multivitamin Tablet 1 tab PO QPM RF: 0 citalopram [Celexa] 10 mg Tablet 10 mg PO QDD RF: 0 atenolol 25 mg Tablet 25 mg PO QPM RF: 0 ferrous sulfate 325 mg (65 mg iron) Tablet 325 mg PO QAM RF: 0 metformin 1,000 mg Tablet 1,000 mg PO BID RF: 0 diltiazem HCl 120 mg Capsule,Extended Release 24hr 240 mg PO QAM RF: 0 cholecalciferol (vitamin D3) [Vitamin D3] 2,000 unit Tablet 2,000 unit PO QPM RF: 0 Discontinued aspirin [Aspirin Low Dose] 81 mg Tablet,Delayed Release (Dr/Ec) 81 mg PO QPM RF: 0 acetaminophen [Tylenol Arthritis Pain] 650 mg Tablet Extended Release 1,300 mg PO Q12H PRN (Reason: Pain) RF: 0 Stand-Alone Forms: [facility] [employer], Opioid Pain [facility]/Other Patient Handouts: Surgery Prevent DVT After Discharge Orders: Discharge Order (Routine); Ordered 02/13/19 Ordered By: Blyane Tavarez Admission Data Admit Date/Time: 02/11/19 09:10 Attending Provider: Tanner Burns Admit Provider: Tanner Burns Primary Care Provider: Venu Bear Other Providers: Tanner Schuler Service: Surgical Services Other Interventions: Discharge Summary Assessment (RN) Last Done: 02/13/19 12:27 Pending Studies at Discharge: No DC Date/Time DO NOT enter until pt leaves facility: 02/13/19 15:30
== END 2019-02-13 15:30 | disposition home or self-care (01) | DRG 470 ==
LOC: ASU 04:47 → 3E 09:10